=== PATIENT | male | born 1965 | race African-American/Black ===

== ENCOUNTER 2021-04-22 18:47 | Inpatient (IN) | payer MEDICAID ==
[~2021-04-22] VITALS: Ht 185.4 cm; Wt 71.9 kg
[2021-04-22] MEDS ORDERED: ACETAMINOPHEN 325MG TABLET PO STA (19:37)
[2021-04-22] MEDS ORDERED: SODIUM CHLORIDE 0.9% 1000ML BAG (SEPSIS BOLUS) IV ONE (19:45)
[2021-04-22 22:30] LABS: CHLORIDE 104 mEq/L (98-107)
[2021-04-22 22:37] LABS: ETHANOL BLOOD < 10 mg/dL
[2021-04-22 23:02] LABS: HEMATOCRIT. 28.9 % (42.0-52.0); HEMOGLOBIN. 9.3 g/dL (14.0-18.0); MEAN CORPUSCULAR HEMOGLOBIN 23.8 pg (28.0-32.0); MEAN CORPUSCULAR VOLUME 74.3 fL (80.0-94.0); MEAN PLATELET VOLUME 7.4 fl (7.4-10.4); PLATELET 303 x1000/uL (130-400); RED CELL DISTRIBUTION WIDTH 18.7 % (11.6-14.6)
[2021-04-22 23:55] LABS: PLATELET ESTIMATE NORMAL
[2021-04-23] MEDS ORDERED: ASPIRIN 325MG EC TABLET PO ONE (04:15)
[2021-04-23 06:53] LABS: CLARITY URINE CLEAR (CLEAR); COLOR URINE YELLOW (YELLOW); KETONES URINE TRACE (NEGATIVE); LEUKOCYTE ESTERASE URINE NEGATIVE (NEGATIVE); NITRITE URINE NEGATIVE (NEGATIVE); OCCULT BLOOD URINE NEGATIVE (NEGATIVE); PH URINE 6.5 (4.5-8.0); PROTEIN URINE 1+ (NEGATIVE); SPECIFIC GRAVITY URINE 1.028 (1.005-1.030)
[2021-04-23 07:15] LABS: *AMPHETAMINES SCREEN URINE NEGATIVE (NEGATIVE); *BARBITURATES SCREEN URINE NEGATIVE (NEGATIVE); *BENZODIAZEPINES SCREEN URINE NEGATIVE (NEGATIVE)
[2021-04-23 07:16] LABS: *COCAINE SCREEN URINE PRESUMTIVE POSITIVE (NEGATIVE); CANNABINOID URINE SCREEN PRESUMTIVE POSITIVE (NEGATIVE); OPIATES URINE SCREEN NEGATIVE (NEGATIVE); PHENCYCLIDINE URINE SCREEN NEGATIVE (NEGATIVE)
[2021-04-23 07:25] LABS: METHADONE URINE SCREEN NEGATIVE (NEGATIVE)
[2021-04-23 11:00] VITALS: BP 132/78
[2021-04-23] MEDS ORDERED: DOCUSATE SODIUM 100MG CAPSULE PO PRN (11:00)
[2021-04-23] MEDS ORDERED: CLONIDINE 0.1MG TABLET PO PRN (11:00)
[2021-04-23] MEDS ORDERED: MAGNESIUM/ALUMINUM HYDROXIDE/SIMETHICONE 30ML UDC PO PRN (11:00)
[2021-04-23] MEDS ORDERED: ONDANSETRON HCL 4MG/2ML INJ IV PRN (11:00)
[2021-04-23] MEDS ORDERED: HYDROCODONE/ACETAMINOPHEN 5/325MG TABLET PO PRN (11:00)
[2021-04-23] MEDS ORDERED: GUAIFENESIN 200MG/10ML SUGAR FREE UDC PO PRN (11:00)
[2021-04-23 12:00] VITALS: BP 132/78
[2021-04-23] MEDS: AMLODIPINE 10MG TABLET PO SCH (12:28)
[2021-04-23] MEDS: ENOXAPARIN 40MG/0.4ML SYR SUBCUT SCH (12:28)
[2021-04-23 16:00] VITALS: BP 128/68
[2021-04-23] MEDS ORDERED: DEXTROSE 50% WATER 50ML SYRINGE IV PRN (20:15)
[2021-04-23] MEDS: BLOOD SUGAR DIAGNOSTIC STRIP TEST SCH (21:00)
[2021-04-23] MEDS: INSULIN LISPRO 100 UNITS/ML SUBCUT SCH (21:00)
[2021-04-24] VITALS: BP 116/75
[2021-04-24 04:00] VITALS: BP 120/58
[2021-04-24 06:42] LABS: CHLORIDE 103 mEq/L (98-107)
[2021-04-24 06:44] LABS: HEMATOCRIT. 27.5 % (42.0-52.0); HEMOGLOBIN. 8.7 g/dL (14.0-18.0); MEAN CORPUSCULAR HEMOGLOBIN 23.4 pg (28.0-32.0); MEAN CORPUSCULAR VOLUME 74.1 fL (80.0-94.0); MEAN PLATELET VOLUME 7.8 fl (7.4-10.4); PLATELET 236 x1000/uL (130-400); RED BLOOD CELL COUNT 3.71 mill/uL (4.7-6.1); RED CELL DISTRIBUTION WIDTH 18.3 % (11.6-14.6)
[2021-04-24 06:54] LABS: HDL CHOLESTEROL 41 mg/dL (40-59); LDL CHOLESTEROL 76 mg/dL (5-100)
[2021-04-24] MEDS: ACETAMINOPHEN 650MG/20.3ML UDC GT PRN ×2 (06:55→20:51)
[2021-04-24 08:00] VITALS: BP 138/68
[2021-04-24] MEDS: INSULIN LISPRO 100 UNITS/ML SUBCUT SCH ×4 (08:00→20:41)
[2021-04-24] MEDS: BLOOD SUGAR DIAGNOSTIC STRIP TEST SCH ×4 (08:26→20:41)
[2021-04-24] MEDS: ENOXAPARIN 40MG/0.4ML SYR SUBCUT SCH (10:07)
[2021-04-24] MEDS: ASPIRIN 81MG EC TABLET PO SCH (10:07)
[2021-04-24] MEDS: AMLODIPINE 10MG TABLET PO SCH (10:07)
[2021-04-24 12:00] VITALS: BP 125/82
[2021-04-25] VITALS: BP 104/72
[2021-04-25] MEDS: BLOOD SUGAR DIAGNOSTIC STRIP TEST SCH (07:30)
[2021-04-25 08:00] VITALS: BP 100/60
[2021-04-25] MEDS: INSULIN LISPRO 100 UNITS/ML SUBCUT SCH (08:00)
[2021-04-25 08:22] VITALS: BP 100/60
[2021-04-25] MEDS: ASPIRIN 81MG EC TABLET PO SCH (08:50)
[2021-04-25] MEDS: AMLODIPINE 10MG TABLET PO SCH (08:50)
[2021-04-25 09:14] LABS: PLATELET ESTIMATE NORMAL
== END 2021-04-25 09:52 | disposition home or self-care (01) | DRG 203 ==
LOC: ER 18:47 → 5EST 04-23 05:57 → EDBEDREQTM 04-23 06:07 → EDBEDREQ 04-23 06:07 → ENRESERV 04-23 10:09
PROVIDERS: ADMIT Hospitalist; ATTEND Hospitalist
DX: M94.0 Chondrocostal junction syndrome [Tietze] (principal); E11.9 Type 2 diabetes mellitus without complications; F14.10 Cocaine abuse, uncomplicated; Z20.822 Contact with and (suspected) exposure to COVID-19; F20.9 Schizophrenia, unspecified; I10 Essential (primary) hypertension; F17.200 Nicotine dependence, unspecified, uncomplicated; Z91.14 Patient's other noncompliance with medication regimen; Z91.19 Patient's noncompliance with other medical treatment and regimen; Z59.00 Homelessness unspecified; Z82.49 Family history of ischemic heart disease and other diseases of the circulatory system
CPT/HCPCS: 36415; 71045; 80053; 80061; 80305; 80320; 81003; 82962; 83036; 83605; 84145; 84484; 85025; 87076; 87426; 93005; 93306; 93970; 99285; J1650; J1815; J2405; J7030; G0480